=== PATIENT | female | born 1965 | race Caucasian/White ===

== ENCOUNTER → 2019-05-03 14:35 | Outpatient (BNVA) | payer OTHER, SELFPAY | PROVIDERS: Family Provider Nurse Practitioner; PCP Nurse Practitioner; Visit Provider Specialist | DX: G43.711 Chronic migraine without aura, intractable, with status migrainosus (principal) | CPT/HCPCS: 64615; J0585 ==

== ENCOUNTER → 2019-09-20 13:59 | Outpatient (BNVA) | payer OTHER, SELFPAY | PROVIDERS: Family Provider Nurse Practitioner; PCP Nurse Practitioner; Visit Provider Specialist | DX: G43.711 Chronic migraine without aura, intractable, with status migrainosus (principal) | CPT/HCPCS: 64615; J0585 ==

== ENCOUNTER → 2019-12-13 11:26 | Outpatient (BNVA) | payer OTHER, SELFPAY | PROVIDERS: Family Provider Nurse Practitioner; PCP Nurse Practitioner; Visit Provider Specialist | DX: G43.711 Chronic migraine without aura, intractable, with status migrainosus (principal) | CPT/HCPCS: 64615; J0585 ==

== ENCOUNTER → 2020-03-13 14:23 | Outpatient (BNVA) | payer OTHER, SELFPAY | PROVIDERS: Family Provider Nurse Practitioner; PCP Nurse Practitioner; Visit Provider Specialist | DX: G43.711 Chronic migraine without aura, intractable, with status migrainosus (principal) | CPT/HCPCS: 64615; J0585 ==

== ENCOUNTER → 2020-06-05 14:10 | Outpatient (BNVA) | payer OTHER, SELFPAY | PROVIDERS: Family Provider Nurse Practitioner; PCP Nurse Practitioner; Visit Provider Specialist | DX: G43.711 Chronic migraine without aura, intractable, with status migrainosus (principal) | CPT/HCPCS: 64615; J0585 ==

== ENCOUNTER → 2020-08-28 11:38 | Outpatient (BNVA) | payer OTHER, SELFPAY | PROVIDERS: Family Provider Nurse Practitioner; PCP Nurse Practitioner; Visit Provider Specialist | DX: G43.711 Chronic migraine without aura, intractable, with status migrainosus (principal) | CPT/HCPCS: 64615; J0585 ==

== ENCOUNTER → 2022-04-29 12:33 | Outpatient (BNVA) | payer OTHER, SELFPAY | PROVIDERS: Family Provider Nurse Practitioner; PCP Nurse Practitioner; Referring Provider Nurse Practitioner; Visit Provider Specialist | DX: G43.711 Chronic migraine without aura, intractable, with status migrainosus (principal) | CPT/HCPCS: 64615; J0585 ==

== ENCOUNTER → 2022-08-26 14:42 | Outpatient (BNVA) | payer OTHER, SELFPAY | PROVIDERS: Family Provider Nurse Practitioner; PCP Nurse Practitioner; Visit Provider Specialist | DX: G43.711 Chronic migraine without aura, intractable, with status migrainosus (principal) | CPT/HCPCS: 64615; J0585 ==

== ENCOUNTER 2022-10-05 14:02 | Outpatient (CLI) | payer OTHER, SELFPAY ==
--- NOTE | 2022-10-05 14:07 | MM_ITS ---
WS: [id number] BILATERAL 3D TOMOSYNTHESIS DIGITAL SCREENING MAMMOGRAPHY WITH CAD CLINICAL INFORMATION: SCREENING HISTORY: Screening mammogram. No current complaints. COMPARISON: 2020 TECHNIQUE: Bilateral CC and MLO views. FINDINGS: The breasts are composed of heterogeneous fibroglandular density tissue, which can limit the detectio n of small underlying mass lesions. No suspicious mass, asymmetry, calcifications, or architectural d istortion. No evidence of malignancy. Punctate calcifications RIGHT breast. MM/[place] [id number] IMPRESSION: BI-RADS: 2-Benign FOLLOW UP: 1 Year Follow-up Recommend return to annual screening mammography.
== END 2022-10-05 14:03 | disposition home or self-care (01) ==
PROVIDERS: PCP Nurse Practitioner; Visit Provider Nurse Practitioner
DX: Z12.31 Encounter for screening mammogram for malignant neoplasm of breast (principal)
CPT/HCPCS: 77063; 77067

== ENCOUNTER → 2022-11-25 13:30 | Outpatient (BNVA) | payer OTHER, SELFPAY | PROVIDERS: PCP Nurse Practitioner; Visit Provider Specialist | DX: G43.711 Chronic migraine without aura, intractable, with status migrainosus (principal) | CPT/HCPCS: 64615; J0585 ==

== ENCOUNTER → 2023-02-24 13:31 | Outpatient (BNVA) | payer OTHER, SELFPAY | PROVIDERS: PCP Nurse Practitioner; Visit Provider Specialist | DX: G43.711 Chronic migraine without aura, intractable, with status migrainosus (principal) | CPT/HCPCS: 64615; 95911; J0585 ==

== ENCOUNTER → 2023-06-02 12:50 | Outpatient (BNVA) | payer OTHER, SELFPAY | PROVIDERS: PCP Nurse Practitioner; Visit Provider Specialist | DX: G43.711 Chronic migraine without aura, intractable, with status migrainosus (principal) | CPT/HCPCS: 64615; J0585 ==

== ENCOUNTER → 2023-09-01 13:05 | Outpatient (BNVA) | payer OTHER, SELFPAY | PROVIDERS: PCP Nurse Practitioner; Visit Provider Specialist | DX: G43.711 Chronic migraine without aura, intractable, with status migrainosus (principal) | CPT/HCPCS: 64615; J0585 ==

== ENCOUNTER → 2024-01-31 14:00 | Outpatient (BNVA) | payer OTHER, SELFPAY | PROVIDERS: PCP Nurse Practitioner; Referring Provider Nurse Practitioner; Visit Provider Specialist | DX: G43.711 Chronic migraine without aura, intractable, with status migrainosus (principal) | CPT/HCPCS: 64615; J0585 ==